=== PATIENT | male | born 1935 | race American Indian/Alaskan Native ===

== ENCOUNTER 2022-02-23 20:13 | Inpatient (IN) | payer MEDICARE ==
[2022-02-23] MEDS ORDERED: SODIUM CHLORIDE 0.9% 1000 ML 1,000 ML IV ONE (23:11)
--- NOTE | 2022-02-23 23:19 | Emergency Department Report ---
ED Seizure HPI - General Chief Complaint: Neuro Symptoms/Deficit Stated Complaint: NEURO SYMPTOMS Time Seen by Provider: 02/23/22 22:00 Source: patient, family Mode of arrival: Wheelchair Limitations: Other - History of Present Illness Initial Comments: 86 yo M with history of CVA x 3 brought in by son in law with what he described as generalized muscle shakiness/ seizure that he noticed around 19:30 PM tonight. He says patient and his was moved in with them about 3 months ago today is the first time he noticed this symptoms. 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 No other modifying or associated factors reported. MD Complaint: seizure - Related Data Allergies Allergy/AdvReac Type Severity Reaction Status Date / Time No Known Allergies Allergy Unverified 02/23/22 20:21 ED Review of Systems ROS: Stated complaint: NEURO SYMPTOMS Other details as noted in HPI Comment: All other systems reviewed and negative Neurological: other (seizure) ED Past Medical Hx - Past Medical History Previous Medical History?: Yes Hx CVA: Yes (x 3) Additional medical history: Pt is nonverbal. Gout - Surgical History Past Surgical History?: No - Social History Smoking Status: Never Smoker ED Physical Exam - General Limitations: Other General appearance: alert, in no apparent distress - Head Head exam: Present: atraumatic, normal inspection - Eye Eye exam: Present: normal appearance Pupils: Present: normal accommodation - ENT ENT exam: Present: normal exam, normal orophraynx, mucous membranes moist - Neck Neck exam: Present: normal inspection, full ROM. Absent: tenderness - Respiratory Respiratory exam: Present: normal lung sounds bilaterally. Absent: respiratory distress, accessory muscle use - Cardiovascular Cardiovascular Exam: Present: regular rate, normal rhythm, normal heart sounds - GI/Abdominal GI/Abdominal exam: Present: soft, normal bowel sounds. Absent: distended, tenderness - Extremities Exam Extremities exam: Present: normal inspection, full ROM, normal capillary refill. Absent: tenderness, pedal edema - Back Exam Back exam: Present: normal inspection. Absent: tenderness - Neurological Exam Neurological exam: Present: alert, oriented X3 - Psychiatric Psychiatric exam: Present: normal affect, normal mood - Skin Skin exam: Present: warm, dry ED Course Vital Signs 02/23/22 02/24/22 20:22 01:02 Temperature 99.1 F 97.6 F Pulse Rate 77 77 Respiratory 16 21 Rate Blood Pressure 134/69 117/71 [Right] O2 Sat by Pulse 98 Oximetry ED Medical Decision Making - Lab Data Result diagrams: 02/23/22 23:36 02/23/22 23:36 - EKG Data -: EKG Interpreted by Me - EKG Data 02/24/22 04:35 EKG noted with atrial fibrillation at a rate of 74 bpm with ventricular prematu re complexes in this abnormal ECG. - Medical Decision Making Here with possible seizure -- even though this is likely seizure but considering this patients age other differential such as stroke, myocardial infarction, hepatic encephalopathy, systemic infection with sepsis cannot be ruled out. In order to rule out those above we will go ahead and order CT scan of the brain, CBC, CMP, urinalysis, for any infectious process or electrolyte abnormality and thyroid panel for any hypo or hyper thyroidism. In the meantime we will go ahead and give immediate Keppra 1 g IV piggyback x1 for neuroleptic stabilization . Lab reviewed and noted to have potassium of 6.3 consistent with hyperkalemia--coupled with EKG showing atrial fibrillation that is likely new--this finding likely lead to patient seizure--given his Kayexalate--also insulin 10 units + D50 and amp of Calcium gluconate-- and considering this patient's age we will go ahead and admit to the hospitalist for further evaluation and treatment to have the opportunity to repeat the labs in the morning. CXR noted with FINDINGS: SUPPORT DEVICES: None. HEART / MEDIASTINUM: Borderline to mild cardiomegaly. Mild atherosclerotic calcification of the aortic knob. LUNGS / PLEURA: Bilateral interstitial opacities more prevalent in left lung base. Mild elevation left hemidiaphragm. BONES: No significant osseous abnormality. ADDITIONAL FINDINGS: No significant additional findings. IMPRESSION: 1. Left greater than right basilar interstitial opacities which may be accentuated by elevated left hemidiaphragm. Differential considerations could include atelectasis and infection. Critical care attestation.: If time is entered above; I have spent that time in minutes in the direct care of this critically ill patient, excluding procedure time. ED Disposition Clinical Impression: Seizure, Hyperkalemia Atrial fibrillation Qualifiers: Atrial fibrillation type: unspecified Qualified Code(s): I48.91 - Unspecified atrial fibrillation Disposition: 09 ADMITTED INPATIENT Is pt being admited?: No Does the pt Need Aspirin: No Condition: Stable
[2022-02-23 23:50] LABS: Basophils % (Auto) 0.3 % (0.0-1.8); Eosinophils % (Auto) 1.2 % (0.0-4.3); Hematocrit 31.1 % (35.5-45.6); Hemoglobin 10.3 gm/dl (11.8-15.2); Lymphocytes # (Auto) 0.8 K/mm3 (1.2-5.4); Lymphocytes % (Auto) 21.5 % (13.4-35.0); Mean Corpuscular HGB Conc 33 % (32-34); Mean Corpuscular Volume 94 fl (84-94); Monocytes # (Auto) 0.6 K/mm3 (0.0-0.8); Monocytes % (Auto) 15.4 % (0.0-7.3); Platelet Count 168 K/mm3 (140-440); Red Blood Count 3.31 M/mm3 (3.65-5.03); Red Cell Distribution Width 13.1 % (13.2-15.2)
--- NOTE | 2022-02-23 23:56 | XRay Report ---
CHEST 1 VIEW INDICATION / CLINICAL INFORMATION: seizure. COMPARISON: None available. FINDINGS: SUPPORT DEVICES: None. HEART / MEDIASTINUM: Borderline to mild cardiomegaly. Mild atherosclerotic calcification of the aorti c knob. LUNGS / PLEURA: Bilateral interstitial opacities more prevalent in left lung base. Mild elevation lef t hemidiaphragm. BONES: No significant osseous abnormality. ADDITIONAL FINDINGS: No significant additional findings. IMPRESSION: 1. Left greater than right basilar interstitial opacities which may be accentuated by elevated left h emidiaphragm. Differential considerations could include atelectasis and infection. Signer Name: Rush Bruno II, MD Signed: 02/23/2022 11:52 PM Workstation Name: [id number]
[2022-02-24 00:02] LABS: INR 1.29 (0.87-1.13)
[2022-02-24 00:03] LABS: Partial Thromboplastin Time 33.7 Sec. (24.2-36.6); Thrombin Time 16.4 Sec. (15.1-19.6)
[2022-02-24 00:08] LABS: Albumin 4.1 g/dL (3.9-5); Calcium 9.2 mg/dL (8.4-10.2)
[2022-02-24 00:09] LABS: Creatine Kinase MB 3.9 ng/mL (0.0-4.0)
[2022-02-24] MEDS ORDERED: LORazepam 2 MG/ML VIAL IV ONE (00:21)
[2022-02-24] MEDS ORDERED: levETIRAcetam 1000 MG/NS 0.75% 1,000 MG/100 ML BAG IV ONE (00:21)
[2022-02-24 00:54] LABS: Mucus,Urine FEW /HPF; WBC,Urine < 1.0 /HPF (0.0-6.0)
[2022-02-24 00:59] LABS: Color,Urine Yellow (Yellow)
[2022-02-24 01:00] LABS: Bilirubin,Urine Negative (Negative); Blood,Urine Negative (Negative); RBC,Urine < 1.0 /HPF (0.0-6.0); Urobilinogen,Urine < 2.0 mg/dL (<2.0)
--- NOTE | 2022-02-24 03:39 | Cat Scan Report ---
CT HEAD WITHOUT CONTRAST INDICATION / CLINICAL INFORMATION: seizure. TECHNIQUE: CT head was performed without administration of intravenous contrast. All CT scans at this location are performed using CT dose reduction for ALARA by means of automated exposure control. COMPARISON: None available. FINDINGS: CEREBRAL HEMISPHERES: Remote infarctions left MCA distribution. Extensive generalized atrophy and vincent rovascular ischemic disease. Additional occipital infarction on the left. No acute hemorrhage. CEREBELLUM / BRAINSTEM: No significant abnormality. ORBITS: No significant abnormality. SOFT TISSUES: No significant abnormality. SKULL: No significant abnormality. PARANASAL SINUSES / MASTOID AIR CELLS: Normal as visualized. ADDITIONAL FINDINGS: None. IMPRESSION: 1. Remote infarctions as detailed. No acute intracranial pathology. 2. Advanced atrophic changes and microvascular ischemic disease. Signer Name: Rush Bruno II, MD Signed: 02/24/2022 3:35 AM Workstation Name: [id number]
[2022-02-24] MEDS ORDERED: SODIUM POLYSTYRENE 15 GM/60 ML ORAL LIQD PO ONE (04:31)
[2022-02-24] MEDS ORDERED: DEXTROSE 50% IN WATER (25GM) 50 ML SYRINGE IV ONE (04:43)
[2022-02-24] MEDS ORDERED: INSULIN REGULAR, HUMAN 100 UNITS/1 ML IV ONE (04:43)
[2022-02-24] MEDS ORDERED: CALCIUM GLUCONATE 1,000 MG in SODIUM CHLORIDE 0.9% 100 ML IV ONE (04:44)
[2022-02-24] MEDS ORDERED: MORPHINE 2 MG/1 ML INJ IV PRN ×2 (04:50→04:53)
[2022-02-24] MEDS ORDERED: ONDANSETRON 4 MG/2 ML INJ IV PRN ×2 (04:50→04:53)
[2022-02-24] MEDS ORDERED: ACETAMINOPHEN 325 MG TAB PO PRN ×2 (04:50→04:53)
[2022-02-24] MEDS ORDERED: MAGNESIUM HYDROXIDE (MOM) ORAL LIQD UDC PO PRN (04:53)
[2022-02-24] MEDS ORDERED: MORPHINE 4 MG/1 ML INJ IV PRN (04:53)
--- NOTE | 2022-02-24 05:02 | History and Physical Report ---
History of Present Illness Date of examination: 02/24/22 Date of admission: 02/24/2022 Chief complaint: Seizures History of present illness: 86-year-old -[place] male with significant history of hypertension, CVA x3, hyperlipidemia accompanied to the emergency room today by his son-in-law with a complaint of seizure disorder. Patient has no known history of seizure disorder. Was said to have had tonic-clonic seizures which was replaced at about 1930 p.m. yesterday. There was no urinary or fecal incontinence. No head injury, no biting of tongue. Patient had moved to with this daughter and son-in-law about 3 months ago. History was given by son-in-law who was by the bedside as patient is unable to communicate due to residual of previous CVAs. Work-up in the emergency room today, lab was significant for for hyperkalemia of 6.3. Troponin 0.094. BUN of 66 and creatinine of 4.5. Chest x-ray shows left greater than right basilar interstitial opacity which may be accentuated by elevated left hemidiaphragm differential considerations would include atelectasis and infection. CT scan of the head showed advanced atrophic changes and microvascular ischemic disease. No acute intracranial pathology. EKG shows atrial fib. Patient was given Kayexalate, insulin and glucose for his hyperkalemia in the emergency room. Past History Past Medical History: hypertension, hyperlipidemia, stroke (X3) Past Surgical History: No surgical history Social history: lives with family (Lives with Dauhter and .) Medications and Allergies Allergies Allergy/AdvReac Type Severity Reaction Status Date / Time No Known Allergies Allergy Unverified 02/23/22 20:21 Active Meds: Active Medications Acetaminophen (Acetaminophen 325 Mg Tab) 650 mg PO Q4H PRN PRN Reason: Pain MILD(1-3)/Fever >100.5/GALARZA Acetaminophen (Acetaminophen 325 Mg Tab) 650 mg PO Q4H PRN PRN Reason: Pain MILD(1-3)/Fever >100.5/GALARZA Heparin Sodium (Porcine) (Heparin 5,000 Unit/1 Ml Vial) 5,000 unit SUB-Q Q8HR YARA Calcium Gluconate 1,000 mg/ (Sodium Chloride) 110 mls @ 660 mls/hr IV ONCE ONE Stop: 02/24/22 04:53 Magnesium Hydroxide (Magnesium Hydroxide (Mom) Oral Liqd Udc) 30 ml PO Q4H PRN PRN Reason: Constipation Morphine Sulfate (Morphine 2 Mg/1 Ml Inj) 2 mg IV Q4H PRN PRN Reason: Pain, Moderate (4-6) Morphine Sulfate (Morphine 2 Mg/1 Ml Inj) 2 mg IV Q4H PRN PRN Reason: Pain, Moderate (4-6) Morphine Sulfate (Morphine 4 Mg/1 Ml Inj) 4 mg IV Q4H PRN PRN Reason: Pain , Severe (7-10) Ondansetron HCl (Ondansetron 4 Mg/2 Ml Inj) 4 mg IV Q8H PRN PRN Reason: Nausea And Vomiting Ondansetron HCl (Ondansetron 4 Mg/2 Ml Inj) 4 mg IV Q8H PRN PRN Reason: Nausea And Vomiting Sodium Chloride (Sodium Chloride 0.9% 10 Ml Flush Syringe) 10 ml IV BID YARA Sodium Chloride (Sodium Chloride 0.9% 10 Ml Flush Syringe) 10 ml IV PRN PRN PRN Reason: LINE FLUSH Sodium Chloride (Sodium Chloride 0.9% 10 Ml Flush Syringe) 10 ml IV BID YARA Sodium Chloride (Sodium Chloride 0.9% 10 Ml Flush Syringe) 10 ml IV PRN PRN PRN Reason: LINE FLUSH Review of Systems ROS unobtainable: due to mental status Exam - Constitutional Vitals: Temp Pulse Resp BP Pulse Ox 97.6 F 77 21 117/71 98 02/24/22 01:02 02/24/22 01:02 02/24/22 01:02 02/24/22 01:02 02/23/22 20:22 General appearance: Present: no acute distress, well-nourished, other (Dry oral mucosa) - EENT Eyes: Present: PERRL, EOM intact. Absent: scleral icterus ENT: hearing intact, clear oral mucosa, dentition normal - Neck Neck: Present: supple, normal ROM - Respiratory Respiratory effort: normal Respiratory: bilateral: CTA - Cardiovascular Rhythm: irregularly irregular Heart Sounds: Present: S1 & S2. Absent: gallop, systolic murmur, diastolic murmur, rub, click - Extremities Extremities: no ischemia, pulses intact, pulses symmetrical, normal temperature, normal color, Full ROM Extremity abnormal: edema (Trace edema over the dorsum of both feet) Peripheral Pulses: within normal limits - Abdominal General gastrointestinal: Present: soft, non-tender, non-distended, normal bowel sounds. Absent: mass - Integumentary Integumentary: Present: clear, warm, dry, normal turgor. Absent: rash - Musculoskeletal Musculoskeletal: strength equal bilaterally - Psychiatric Psychiatric: appropriate mood/affect, cooperative - Neurologic Neurologic: CNII-XII intact, no focal deficits, moves all extremities, other (Speech is incoherent) HEART Score - HEART Score Troponin: Troponin T 0.094 ng/mL (0.00-0.029) H 02/23/22 23:36 Results - Labs CBC & Chem 7: 02/23/22 23:36 02/23/22 23:36 Labs: Abnormal lab results 02/23/22 02/23/22 02/23/22 Range/Units 23:36 23:36 23:36 WBC 3.8 L (4.5-11.0) K/mm3 RBC 3.31 L (3.65-5.03) M/mm3 Hgb 10.3 L (11.8-15.2) gm/dl Hct 31.1 L (35.5-45.6) % RDW 13.1 L (13.2-15.2) % Alfalfa % (Auto) 15.4 H (0.0-7.3) % Lymph # (Auto) 0.8 L (1.2-5.4) K/mm3 PT 17.6 H (12.2-14.9) Sec. INR 1.29 H (0.87-1.13) Potassium (3.6-5.0) mmol/L Carbon Dioxide (22-30) mmol/L BUN (9-20) mg/dL Creatinine (0.8-1.3) mg/dL Troponin T 0.094 H (0.00-0.029) ng/mL 02/23/22 Range/Units 23:36 WBC (4.5-11.0) K/mm3 RBC (3.65-5.03) M/mm3 Hgb (11.8-15.2) gm/dl Hct (35.5-45.6) % RDW (13.2-15.2) % Alfalfa % (Auto) (0.0-7.3) % Lymph # (Auto) (1.2-5.4) K/mm3 PT (12.2-14.9) Sec. INR (0.87-1.13) Potassium 6.3 H* (3.6-5.0) mmol/L Carbon Dioxide 19 L (22-30) mmol/L BUN 66 H (9-20) mg/dL Creatinine 4.5 H (0.8-1.3) mg/dL Troponin T (0.00-0.029) ng/mL Assessment and Plan Assessment: 1. Seizure disorder 2. Hyperkalemia 3. Atrial fibrillation 4. Hypertension 5. Hyperlipidemia 6. History of CVA x3 7. AKIBaseline BUN and creatinine unknown. 8. Elevated troponin Plan: 1. Patient admitted and placed on seizure precautions. We will also place patient on antiseizure medication. 2. Consult be placed to neurology for evaluation. 3. Patient has had insulin, glucose and Kayexalate in the emergency room. We will monitor potassium level. 4. We will schedule patient for EEG. 5. We will resume routine home medications once reconciled. 6. We will place consult to cardiology for evaluation and further recommendations on A. fib. And elevated troponin. Meanwhile we will schedule for echocardiogram. 7. We will schedule for renal ultrasound. Consult also placed to nephrology for evaluation and further recommendation. DVT prophylaxis: Subcutaneous heparin CODE STATUS: Full code
[2022-02-24] MEDS ORDERED: CALC GLUCONATE 1GM/NS 100 ML 1 GM/100 ML BAG IV ONE (05:20)
[2022-02-24] MEDS ORDERED: SODIUM CHLORIDE 0.9% 1000 ML 1,000 ML IV SCH (05:30)
[2022-02-24] MEDS: HEPARIN 5,000 UNIT/1 ML VIAL SUB-Q SCH ×3 (08:22→23:24)
[2022-02-24] MEDS ORDERED: SODIUM POLYSTYRENE 15 GM/60 ML ORAL LIQD PO SCH (09:00)
--- NOTE | 2022-02-24 10:06 | Consultation ---
History of Present Illness - Reason for Consult Consult date: 02/24/22 acute renal failure, hyperkalemia Requesting physician: RAMONA PATEL - History of Present Illness 86 yo M with history of CVA x 3 brought in by son in law with what he described as generalized muscle shakiness/ seizure that he noticed around 19:30 PM tonight. He says patient and his was moved in with them about 3 months ago today is the first time he noticed this symptoms. 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 No other modifying or associated factors reported. Patient is somewhat confused at this time. Unable to obtain any additional history from him. Tried to call patient's son Lv He at [phone]. No answer. Unable to leave message as mailbox is full. Past History Past Medical History: hypertension, hyperlipidemia, stroke (X3) Past Surgical History: No surgical history Social history: lives with family (Lives with Dauhter and .) Medications and Allergies Allergies Allergy/AdvReac Type Severity Reaction Status Date / Time No Known Allergies Allergy Unverified 02/23/22 20:21 Active Meds: Active Medications Acetaminophen (Acetaminophen 325 Mg Tab) 650 mg PO Q4H PRN PRN Reason: Pain MILD(1-3)/Fever >100.5/GALARZA Heparin Sodium (Porcine) (Heparin 5,000 Unit/1 Ml Vial) 5,000 unit SUB-Q Q8HR YARA Last Admin: 02/24/22 08:22 Dose: Not Given Magnesium Hydroxide (Magnesium Hydroxide (Mom) Oral Liqd Udc) 30 ml PO Q4H PRN PRN Reason: Constipation Morphine Sulfate (Morphine 2 Mg/1 Ml Inj) 2 mg IV Q4H PRN PRN Reason: Pain, Moderate (4-6) Morphine Sulfate (Morphine 4 Mg/1 Ml Inj) 4 mg IV Q4H PRN PRN Reason: Pain , Severe (7-10) Ondansetron HCl (Ondansetron 4 Mg/2 Ml Inj) 4 mg IV Q8H PRN PRN Reason: Nausea And Vomiting Sodium Chloride (Sodium Chloride 0.9% 10 Ml Flush Syringe) 10 ml IV PRN PRN PRN Reason: LINE FLUSH Sodium Chloride (Sodium Chloride 0.9% 10 Ml Flush Syringe) 10 ml IV BID [facility] Sodium Polystyrene Sulfonate (Sodium Polystyrene 15 Gm/60 Ml Oral Liqd) 60 gm PO ONCE@0900 YARA Stop: 02/24/22 13:00 Review of Systems ROS unobtainable: due to mental status Exam - Vital Signs Vital signs: Vital Signs Temp Pulse Resp BP Pulse Ox 99.1 F 77 16 134/69 98 02/23/22 20:22 02/23/22 20:22 02/23/22 20:22 02/23/22 20:22 02/23/22 20:22 - General Appearance General appearance: well-developed, well-nourished, appears stated age EENT: PERRL, mucous membranes moist Neck: Present: neck supple, trachea midline. Absent: JVD/HJR, Masses Respiratory: Clear to Ascultation Heart: regular, normal heart rate, S1S2, no murmurs Gastrointestinal: Present: normal. Absent: tenderness, distended, masses, guarding Integumentary: no rash, other (No edema) Results - Lab Results 02/23/22 23:36 02/23/22 23:36 Most recent lab results Calcium 9.2 mg/dL (8.4-10.2) 02/23/22 23:36 Assessment and Plan Impression * Acute kidney injury. Patient has a serum creatinine of 4.5 with a EGFR of 12 cc/min. Baseline renal function is not known * Altered mental status * Seizures * Hyperkalemia * History of CVA * History of hypertension Recommendations * Etiology of acute kidney injury unclear. He may have a prerenal component. Need to rule out obstructive component as well * Patient may have some degree of chronic kidney disease. Baseline renal functi on however is not known * Shall check a UA as well as a fractional excretion of sodium * Check renal ultrasound to assess kidney size and echogenicity and to rule out obstruction * Shall hydrate patient gently * Shall treat his hyperkalemia medically * Shall also do a bladder scan to rule out urinary retention. Discussed with patient's nurse * Avoid nephrotoxins * Monitor fluid status and electrolytes closely * Attempted to call his son Lv He at [phone]. No answer. Unable to leave message as mailbox is full. Shall try again later * Thank you very much for the consultation. Shall follow along with you
--- NOTE | 2022-02-24 10:06 | Electrocardiograph Report ---
[facility] Test Date: 2022-02-24 Test Time: 00:54:33 Pat Name: JAZLYN TATE Department: Room: A470 1 Gender: M Netezza Developer: NAV : [id number] Requested By: VELMA PEÑA Order Number: [id number] Reading MD: Paulo Wilson Measurements Intervals [place] Rate: 74 P: SD: QRS: -32 QRSD: 94 T: -28 QT: 394 QTc: 438 Interpretive Statements Atrial fibrillation Ventricular premature complex Nonspecific intraventricular conduction delay No previous ECG available for comparison Would repeat given sig artifact Electronically Signed On 02-24-2022 10:05:55 EDT by Paulo Wilson
[2022-02-24 10:09] LABS: Calcium 9.7 mg/dL (8.4-10.2)
[2022-02-24] MEDS: SODIUM BICARBONATE 75 MEQ in DEXTROSE 5% IN WATER 1,000 ML IV SCH (11:58)
[2022-02-24 13:08] LABS: Hyaline Casts,Urine 3 /LPF; Mucus,Urine FEW /HPF
--- NOTE | 2022-02-24 13:48 | Discharge Summary ---
Providers - Providers Date of Admission: 02/24/22 04:50 Date of discharge: 02/24/22 Attending physician: RADHA FORRESTER MD 02/24/22 04:53 Consult to Physician [CONS] Routine Comment: Consulting Provider: SAGRAROI NAVARRO Physician Instructions: Reason For Exam: Seizures 02/24/22 04:56 Consult to Physician [CONS] Routine Comment: Consulting Provider: KHRIS NORRIS Physician Instructions: Reason For Exam: [place] Fibrillation 02/24/22 05:12 Consult to Physician [CONS] Routine Comment: Consulting Provider: MIR GARCIA Physician Instructions: Reason For Exam: GUILLERMO 02/24/22 11:44 Speech Therapy Evaluation and Treat [CONS] Urgent Reason For Exam: poor p.o intake; refusal to eat/drink 02/24/22 12:13 Consult to Dietitian/Nutrition [CONS] Routine Physician Instructions: Reason For Exam: Reason for Consult: Write/Manage Tube Feeding Primary care physician: ABILIO LARA Hospitalization Reason for admission: Hyperkalemia, seizure disorder Condition: Stable Pertinent studies: Reviewed. Procedures: None. Hospital course: The patient is an 86-year-old -[place] male with significant history of hypertension, CVA x3, hyperlipidemia accompanied to the emergency room today by his son-in-law with a complaint of seizure disorder. Patient has no known history of seizure disorder. Was said to have had tonic-clonic seizures which was replaced at about 1930 p.m. yesterday. There was no urinary or fecal incontinence. No head injury, no biting of tongue. Patient is currently in hospice and with his daughter and son-in-law approximately 3 months ago. The history was given by the son-in-law at the bedside as the patient is unable to communicate due to residual effects of previous strokes. On evaluation, the patient had labs significant for hyperkalemia of 6.3, creatinine 4.5, and troponin 0.094. The patient received medical management for hyperkalemia with Kayexalate, IV insulin, and D50 in the emergency department. The patient's hyperkalemia has since resolved. Nephrology was consulted for management. Further investigation revealed that the patient was currently under hospice at [facility] who are willing to accept the patient back to their inpatient hospice unit in [place] pending a COVID test. The patient is medically cleared for discharge back to [facility]. Disposition: 51 HOSPICE/MEDICAL FACILITY Final Discharge Diagnosis (Prints w/discharge instructions): Seizure disorder, hyperkalemia, atrial fibrillation, hypertension, hyperlipidemia, GUILLERMO, elevated troponin, history of CVA x3 Time spent for discharge: 45 min Core Measure Documentation - Palliative Care Palliative Care/ Comfort Measures: Hospice Care - Core Measures Any of the following diagnoses?: history only Exam - Constitutional Vitals: Temp Pulse Resp BP Pulse Ox 97.3 F L 67 16 123/66 96 02/24/22 13:19 02/24/22 13:19 02/24/22 13:19 02/24/22 13:19 02/24/22 13:19 General appearance: Present: no acute distress, cachectic - EENT Eyes: Present: PERRL, EOM intact ENT: hearing intact, clear oral mucosa - Neck Neck: Present: supple, normal ROM - Respiratory Respiratory effort: normal Respiratory: bilateral: CTA - Cardiovascular Rhythm: regular Heart Sounds: Present: S1 & S2 - Extremities Extremities: no ischemia, pulses intact, pulses symmetrical, No edema, normal temperature, normal color Peripheral Pulses: within normal limits - Abdominal General gastrointestinal: Present: soft, non-tender, non-distended, normal bowel sounds Male genitourinary: Present: deferred - Rectal Rectal Exam: deferred - Integumentary Integumentary: Present: clear, warm, dry - Musculoskeletal Musculoskeletal: generalized weakness - Psychiatric Psychiatric: other (Unable to fully examine given patient's cognitive decline after strokes) - Neurologic Neurologic: other (Unable to fully examine given patient's cognitive decline after strokes) - Allied Health Allied health notes reviewed: nursing Plan Activity: no restrictions Diet: low salt Additional Instructions: The patient is an 86-year-old -[place] male with significant history of hypertension, CVA x3, hyperlipidemia accompanied to the emergency room today by his son-in-law with a complaint of seizure disorder. Patient has no known history of seizure disorder. Was said to have had tonic- clonic seizures which was replaced at about 1930 p.m. yesterday. There was no urinary or fecal incontinence. No head injury, no biting of tongue. Patient is currently in hospice and with his daughter and son-in-law approximately 3 months ago. The history was given by the son-in-law at the bedside as the patient is unable to communicate due to residual effects of previous strokes. On evaluation, the patient had labs significant for hyperkalemia of 6.3, creatinine 4.5, and troponin 0.094. The patient received medical management for hyperkalemia with Kayexalate, IV insulin, and D50 in the emergency department. The patient's hyperkalemia has since resolved. Nephrology was consulted for management. Further investigation revealed that the patient was currently under hospice at [facility] who are willing to accept the patient back to their inpatient hospice unit in [place] pending a COVID test. The patient is medically cleared for discharge back to [facility]. Care Plan Goals: Patient's medically cleared to discharge to inpatient hospice facility at [facility]. Assessment: The patient is an 86-year-old -[place] male with significant history of hypertension, CVA x3, hyperlipidemia accompanied to the emergency room today by his son-in-law with a complaint of seizure disorder. Patient has no known history of seizure disorder. Was said to have had tonic-clonic seizures which was replaced at about 1930 p.m. yesterday. There was no urinary or fecal incontinence. No head injury, no biting of tongue. Patient is currently in hospice and with his daughter and son-in-law approximately 3 months ago. The history was given by the son-in-law at the bedside as the patient is unable to communicate due to residual effects of previous strokes. On evaluation, the patient had labs significant for hyperkalemia of 6.3, creatinine 4.5, and troponin 0.094. The patient received medical management for hyperkalemia with Kayexalate, IV insulin, and D50 in the emergency department. The patient's hyperkalemia has since resolved. Nephrology was consulted for management. Further investigation revealed that the patient was currently under hospice at [facility] who are willing to accept the patient back to their inpatient hospice unit in [place] pending a COVID test. The patient is medically cleared for discharge back to [facility]. Follow up with: ABILIO LARA MD [Primary Care Provider] - 3-5 Days
[2022-02-24 14:19] LABS: Color,Urine Straw (Yellow)
[2022-02-24 14:20] LABS: Bilirubin,Urine Negative (Negative)
[2022-02-24 14:21] LABS: Blood,Urine Large (Negative); Urobilinogen,Urine < 2.0 mg/dL (<2.0)
--- NOTE | 2022-02-24 14:31 | Consultation ---
History of Present Illness Consult date: 02/24/22 Consult reason: atrial fibrillation History of present illness: We are asked to consult on this 86-year-old man who is elderly, frail and poorly communicative. He apparently was admitted with altered mental status and nonspecific neurological symptoms suggesting possible seizures. In the hospital, EKG and telemetry monitoring reveals atrial fibrillation with well- controlled ventricular rate. Patient is unable to provide history, and records do not indicate chronicity of the atrial fibrillation. The patient is does not appear to be on AV mauricio blocking agents or oral anticoagulation. Past History Past Medical History: hypertension, hyperlipidemia, stroke (X3) Past Surgical History: No surgical history Social history: lives with family (Lives with Dauhter and .) Medications and Allergies Allergies Allergy/AdvReac Type Severity Reaction Status Date / Time No Known Allergies Allergy Unverified 02/23/22 20:21 Home Medications Medication Instructions Recorded Confirmed Last Taken Type Sodium Bicarbonate 75 meq IV DIRECT vial 02/24/22 Unknown Rx Active Meds: Active Medications Acetaminophen (Acetaminophen 325 Mg Tab) 650 mg PO Q4H PRN PRN Reason: Pain MILD(1-3)/Fever >100.5/GALARZA Heparin Sodium (Porcine) (Heparin 5,000 Unit/1 Ml Vial) 5,000 unit SUB-Q Q8HR [facility] Last Admin: 02/24/22 08:22 Dose: Not Given Sodium Bicarbonate 75 meq/ (Dextrose) 1,075 mls @ 75 mls/hr IV DIRECT YARA Last Admin: 02/24/22 11:58 Dose: 75 mls/hr Magnesium Hydroxide (Magnesium Hydroxide (Mom) Oral Liqd Udc) 30 ml PO Q4H PRN PRN Reason: Constipation Morphine Sulfate (Morphine 2 Mg/1 Ml Inj) 2 mg IV Q4H PRN PRN Reason: Pain, Moderate (4-6) Morphine Sulfate (Morphine 4 Mg/1 Ml Inj) 4 mg IV Q4H PRN PRN Reason: Pain , Severe (7-10) Ondansetron HCl (Ondansetron 4 Mg/2 Ml Inj) 4 mg IV Q8H PRN PRN Reason: Nausea And Vomiting Sodium Chloride (Sodium Chloride 0.9% 10 Ml Flush Syringe) 10 ml IV PRN PRN PRN Reason: LINE FLUSH Sodium Chloride (Sodium Chloride 0.9% 10 Ml Flush Syringe) 10 ml IV BID YARA Last Admin: 02/24/22 12:05 Dose: 10 ml Review of Systems ROS unobtainable: due to mental status Physical Examination Vital Signs Temp Pulse Resp BP Pulse Ox 99.1 F 77 16 134/69 98 02/23/22 20:22 02/23/22 20:22 02/23/22 20:22 02/23/22 20:22 02/23/22 20:22 General appearance: other (Frail, elderly, poorly communicative, but no acute distress) HEENT: Positive: PERRL Neck: Positive: neck supple Cardiac: Positive: irregularly irregular Lungs: Positive: Decreased Breath Sounds Neuro: Positive: Weakness (Generalized lethargy) Abdomen: Positive: Soft Male genitourinary: Positive: deferred Skin: Positive: Clear Extremities: Absent: edema Results 02/23/22 23:36 02/24/22 09:17 Cardiac Enzymes 02/23/22 02/23/22 Range/Units 23:36 23:36 AST 25 (5-40) units/L CK-MB (CK-2) 3.9 (0.0-4.0) ng/mL Coagulation 02/23/22 Range/Units 23:36 PT 17.6 H (12.2-14.9) Sec. INR 1.29 H (0.87-1.13) APTT 33.7 (24.2-36.6) Sec. CBC 02/23/22 Range/Units 23:36 WBC 3.8 L (4.5-11.0) K/mm3 RBC 3.31 L (3.65-5.03) M/mm3 Hgb 10.3 L (11.8-15.2) gm/dl Hct 31.1 L (35.5-45.6) % Plt Count 168 (140-440) K/mm3 Lymph # (Auto) 0.8 L (1.2-5.4) K/mm3 [place] # (Auto) 0.6 (0.0-0.8) K/mm3 Eos # (Auto) 0.0 (0.0-0.4) K/mm3 Baso # (Auto) 0.0 (0.0-0.1) K/mm3 Comprehensive Metabolic Panel 02/23/22 02/24/22 Range/Units 23:36 09:17 Sodium 140 142 (137-145) mmol/L Potassium 6.3 H* 4.9 D (3.6-5.0) mmol/L Chloride 106.7 109.4 H (98-107) mmol/L Carbon Dioxide 19 L 21 L (22-30) mmol/L BUN 66 H 62 H (9-20) mg/dL Creatinine 4.5 H 4.4 H (0.8-1.3) mg/dL Glucose 90 60 L (75-100) mg/dL Calcium 9.2 9.7 (8.4-10.2) mg/dL AST 25 (5-40) units/L ALT 16 (7-56) units/L Alkaline Phosphatase 90 (35-129) units/L Total Protein 7.5 (6.3-8.2) g/dL Albumin 4.1 (3.9-5) g/dL EKG interpretations - Telemetry EKG Rhythm: Atrial Fibrillation Assessment and Plan - Patient Problems (1) Atrial fibrillation Current Visit: Yes Status: Acute Qualifiers: Atrial fibrillation type: unspecified Qualified Code(s): I48.91 - Unspecified atrial fibrillation Plan to address problem: Patient has atrial fibrillation of unspecified chronicity, no previous cardiac records available for review. Patient is rate controlled, so no AV mauricio blocking agents are indicated. If additional medical therapy is planned, oral anticoagulation with a NOAC can be considered for future stroke prophylaxis. An echocardiogram has been ordered, and will be reported when completed. Otherwise conservative cardiac management.
[2022-02-24 15:04] LABS: Creatinine,Urine 30.2 mg/dL (0.1-20.0); Fractional Sodium Excretion 9.8
[2022-02-25] MEDS: SODIUM BICARBONATE 75 MEQ in DEXTROSE 5% IN WATER 1,000 ML IV SCH (02:05)
[2022-02-25] MEDS: HEPARIN 5,000 UNIT/1 ML VIAL SUB-Q SCH ×3 (05:08→21:15)
--- NOTE | 2022-02-25 09:31 | Progress Note ---
Assessment and Plan Impression * Acute kidney injury. Patient has a serum creatinine of 4.5 with a EGFR of 12 cc/min. Baseline renal function is not known * Altered mental status * Seizures * Hyperkalemia * History of CVA * History of hypertension Recommendations * Etiology of acute kidney injury unclear. He may have a prerenal component. Need to rule out obstructive component as well * Patient may have some degree of chronic kidney disease. Baseline renal fu nction however is not known * His urine shows 1+ dipstick protein and large blood. Fractional excretion of sodium is 9.8%. * Check renal ultrasound to assess kidney size and echogenicity and to rule out obstruction * Continue gentle IV hydration. * Hyperkalemia has been corrected. * Bladder scan showed about 300 cc of urine in his bladder. Patient currently has a Walker catheter in place. He is currently nonoliguric. * No urgent indication for dialysis today * Avoid nephrotoxins * Monitor fluid status and electrolytes closely * Spoke with patient's son Lv He at [phone]. He has no knowledge of renal dysfunction. He was recently brought over from [place] to live with him here in [place]. He has been eating and drinking well prior to his episode of seizure. Also discussed with him regarding his renal status. He has no objection to initiating dialysis if needed Subjective Date of service: 02/25/22 Interval history: Patient is lethargic. IV fluid infusing. Breakfast at bedside. Has not been touched. Patient had a Walker catheter placed yesterday due to urinary retention. Objective - Vital Signs Vital signs: Vital Signs - 12hr 02/24/22 02/24/22 02/25/22 23:00 23:55 03:55 Temperature 97.9 F 98.2 F Pulse Rate 58 L 53 L 57 L Respiratory 18 18 Rate Blood Pressure 144/63 141/69 O2 Sat by Pulse 98 99 Oximetry 02/25/22 08:00 Temperature Pulse Rate Respiratory Rate Blood Pressure O2 Sat by Pulse 96 Oximetry - General Appearance General appearance: well-developed, well-nourished, appears stated age EENT: PERRL, mucous membranes moist Neck: no JVD, no thyromegaly, no carotid bruit, supple Respiratory: Present: Clear to Ascultation Cardiology: regular, normal heart rate, S1S2, no murmurs Gastrointestinal: normal, normoactive bowel sounds Integumentary: other (No edema) - Lab 02/23/22 23:36 02/24/22 09:17 Most recent lab results Calcium 9.7 mg/dL (8.4-10.2) 02/24/22 09:17 Urine Creatinine 30.2 mg/dL (0.1-20.0) H 02/24/22 12:02 Urine Sodium 99 mmol/L 02/24/22 12:02 Medications & Allergies - Medications Allergies/Adverse Reactions: Allergies No Known Allergies Allergy (Unverified 02/23/22 20:21) Home Medications: Home Medications Medication Instructions Recorded Confirmed Last Taken Type Sodium Bicarbonate 75 meq IV DIRECT vial 02/24/22 Unknown Rx Active Medications: Generic Name Dose Route Start Last Admin Trade Name Freq PRN Reason Stop Dose Admin Acetaminophen 650 mg 02/24/22 04:50 Acetaminophen 325 Mg Tab PO Q4H PRN Pain MILD(1-3)/Fever >100.5/GALARZA Heparin Sodium (Porcine) 5,000 unit 02/24/22 06:00 02/25/22 05:08 Heparin 5,000 Unit/1 Ml Vial SUB-Q 5,000 unit Q8HR YARA Administration Sodium Bicarbonate 75 meq/ 1,075 mls @ 75 mls/hr 02/24/22 11:00 02/25/22 02:05 Dextrose IV 75 mls/hr DIRECT YARA Administration Magnesium Hydroxide 30 ml 02/24/22 04:53 Magnesium Hydroxide (Mom) Oral Liqd Udc PO Q4H PRN Constipation Morphine Sulfate 2 mg 02/24/22 04:50 Morphine 2 Mg/1 Ml Inj IV Q4H PRN Pain, Moderate (4-6) Morphine Sulfate 4 mg 02/24/22 04:53 Morphine 4 Mg/1 Ml Inj IV Q4H PRN Pain , Severe (7-10) Ondansetron HCl 4 mg 02/24/22 04:50 Ondansetron 4 Mg/2 Ml Inj IV Q8H PRN Nausea And Vomiting Sodium Chloride 10 ml 02/24/22 04:50 Sodium Chloride 0.9% 10 Ml Flush Syringe IV PRN PRN LINE FLUSH Sodium Chloride 10 ml 02/24/22 10:00 02/24/22 23:24 Sodium Chloride 0.9% 10 Ml Flush Syringe IV 10 ml BID YARA Administration
--- NOTE | 2022-02-25 11:15 | Progress Note ---
Assessment and Plan - Patient Problems (1) Atrial fibrillation Current Visit: Yes Status: Acute Qualifiers: Atrial fibrillation type: unspecified Qualified Code(s): I48.91 - Unspecified atrial fibrillation Plan to address problem: Patient has atrial fibrillation of unspecified chronicity, no previous cardiac records available for review. Patient is rate controlled, so no AV mauricio blocking agents are indicated. Echocardiogram shows well-preserved left ventricular systolic ejection fraction 50 to 55%. If additional medical therapy is planned, oral anticoagulation with a NOAC at low dose can be considered for future stroke prophylaxis. Otherwise conservative cardiac management. Subjective Date of service: 02/25/22 Principal diagnosis: Possible seizures, atrial fibrillation Interval history: Patient is comfortable, no acute distress. On tooling manager, he has a persistent atrial fibrillation, with slow ventricular rate. There are no AV mauricio blocking agents on his medication profile. Objective Vital Signs Temp Pulse Resp BP BP Pulse Ox 02/25/22 08:00 96 02/25/22 03:55 98.2 F 57 L 18 141/69 99 02/24/22 23:55 97.9 F 53 L 18 144/63 98 02/24/22 23:00 58 L 02/24/22 20:00 96 02/24/22 19:36 97.2 F L 65 19 138/71 95 02/24/22 16:28 97.7 F 58 L 18 131/74 99 02/24/22 13:19 97.3 F L 67 16 123/66 96 02/24/22 12:58 57 L 98 02/24/22 11:20 64 - Physical Examination General: No Apparent Distress, Cachectic HEENT: Positive: PERRL Neck: Positive: neck supple Cardiac: Positive: irregularly irregular Lungs: Positive: Decreased Breath Sounds Neuro: Positive: Weakness (Generalized lethargy) Abdomen: Positive: Soft Skin: Positive: Clear Extremities: Absent: edema
--- NOTE | 2022-02-25 15:33 | Discharge Summary ---
Providers - Providers Date of Admission: 02/24/22 04:50 Date of discharge: 02/25/22 Attending physician: RADHA FORRESTER MD 02/24/22 04:53 Consult to Physician [CONS] Routine Comment: Consulting Provider: SAGRARIO NAVARRO Physician Instructions: Reason For Exam: Seizures 02/24/22 04:56 Consult to Physician [CONS] Routine Comment: Consulting Provider: KHRIS NORRIS Physician Instructions: Reason For Exam: [place] Fibrillation 02/24/22 05:12 Consult to Physician [CONS] Routine Comment: Consulting Provider: MIR GARCIA Physician Instructions: Reason For Exam: GUILLERMO 02/24/22 11:44 Speech Therapy Evaluation and Treat [CONS] Urgent Reason For Exam: poor p.o intake; refusal to eat/drink 02/24/22 12:13 Consult to Dietitian/Nutrition [CONS] Routine Physician Instructions: Reason For Exam: Reason for Consult: Write/Manage Tube Feeding Primary care physician: ABILIO LARA Hospitalization Reason for admission: Acute metabolic encephalopathy, GUILLERMO, seizure disorder Condition: Stable Pertinent studies: Reviewed. Procedures: None. Hospital course: The patient is an 86-year-old -[place] male with significant history of hypertension, CVA x3, hyperlipidemia accompanied to the emergency room today by his son-in-law with a complaint of seizure disorder. Patient has no known history of seizure disorder. Was said to have had tonic-clonic seizures which was replaced at about 1930 p.m. yesterday. There was no urinary or fecal incontinence. No head injury, no biting of tongue. The history was given by the son-in-law at the bedside as the patient is unable to communicate due to residual effects of previous strokes. On evaluation, the patient had labs significant for hyperkalemia of 6.3, creatinine 4.5, and troponin 0.094. The patient received medical management for hyperkalemia with Kayexalate, IV insulin, and D50 in the emergency department. The patient's hyperkalemia has since resolved. Nephrology was consulted for management. Patient has refused labs and further evaluation. It is deemed that the patient is likely back at his baseline. Patient is medically clear for discharge to his family. He will be discharging home with the Gaming catheter. Disposition: 01 HOME / SELF CARE / HOMELESS Final Discharge Diagnosis (Prints w/discharge instructions): Seizure disorder, hyperkalemia, atrial fibrillation, hypertension, hyperlipidemia, GUILLERMO, elevated troponin, history of CVA x3, urinary retention Time spent for discharge: 45 min Core Measure Documentation - Palliative Care Palliative Care/ Comfort Measures: Hospice Care Exam - Constitutional Vitals: Temp Pulse Resp BP Pulse Ox 98.2 F 57 L 18 141/69 96 02/25/22 03:55 02/25/22 03:55 02/25/22 03:55 02/25/22 03:55 02/25/22 08:00 General appearance: Present: no acute distress, obese, other (Baseline dementia) - EENT Eyes: Present: PERRL, EOM intact ENT: hearing intact, clear oral mucosa, dentition normal - Neck Neck: Present: supple, normal ROM - Respiratory Respiratory effort: normal Respiratory: bilateral: CTA - Cardiovascular Rhythm: regular Heart Sounds: Present: S1 & S2 - Extremities Extremities: no ischemia, pulses intact, pulses symmetrical, No edema, normal temperature, normal color Peripheral Pulses: within normal limits - Abdominal General gastrointestinal: Present: soft, non-tender, non-distended, normal bowel sounds Male genitourinary: Present: deferred (Gaming catheter) - Rectal Rectal Exam: deferred - Integumentary Integumentary: Present: clear, warm, dry - Musculoskeletal Musculoskeletal: generalized weakness - Psychiatric Psychiatric: agitated, other (Baseline dementia; refusing lab draws or physical interaction) - Neurologic Neurologic: CNII-XII intact, moves all extremities - Allied Health Allied health notes reviewed: nursing Plan Activity: advance as tolerated Diet: low salt Additional Instructions: The patient is an 86-year-old -[place] male with significant history of hypertension, CVA x3, hyperlipidemia accompanied to the emergency room today by his son-in-law with a complaint of seizure disorder. Patient has no known history of seizure disorder. Was said to have had tonic- clonic seizures which was replaced at about 1930 p.m. yesterday. There was no urinary or fecal incontinence. No head injury, no biting of tongue. The history was given by the son-in-law at the bedside as the patient is unable to communicate due to residual effects of previous strokes. On evaluation, the patient had labs significant for hyperkalemia of 6.3, creatinine 4.5, and troponin 0.094. The patient received medical management for hyperkalemia with Kayexalate, IV insulin, and D50 in the emergency department. The patient's hyperkalemia has since resolved. Nephrology was consulted for management. Patient has refused labs and further evaluation. It is deemed that the patient is likely back at his baseline. Patient is medically clear for discharge to his family. He will be discharging home with the Gaming catheter. Care Plan Goals: Patient's medically cleared to discharge home with family. Assessment: The patient is an 86-year-old -[place] male with significant history of hypertension, CVA x3, hyperlipidemia accompanied to the emergency room today by his son-in-law with a complaint of seizure disorder. Patient has no known history of seizure disorder. Was said to have had tonic-clonic seizures which was replaced at about 1930 p.m. yesterday. There was no urinary or fecal incontinence. No head injury, no biting of tongue. The history was given by the son-in-law at the bedside as the patient is unable to communicate due to residual effects of previous strokes. On evaluation, the patient had labs significant for hyperkalemia of 6.3, creatinine 4.5, and troponin 0.094. The patient received medical management for hyperkalemia with Kayexalate, IV insuli n, and D50 in the emergency department. The patient's hyperkalemia has since resolved. Nephrology was consulted for management. Patient has refused labs and further evaluation. It is deemed that the patient is likely back at his baseline. Patient is medically clear for discharge to his family. He will be discharging home with the Gaming catheter. Follow up with: ABILIO LARA MD [Primary Care Provider] - 3-5 Days HAI MARI MD [Staff Physician] - 14 Days (Urinary retention requiring gaming catheter placement. )
[2022-02-26 01:22] VITALS: BP 149/77
[2022-02-26] MEDS: HEPARIN 5,000 UNIT/1 ML VIAL SUB-Q SCH ×2 (06:39→13:13)
--- NOTE | 2022-02-26 09:04 | Progress Note ---
Assessment and Plan Impression * Acute kidney injury. Patient has a serum creatinine of 4.5 with a EGFR of 12 cc/min. Baseline renal function is not known * Altered mental status * Seizures * Hyperkalemia * History of CVA * History of hypertension Recommendations * Etiology of acute kidney injury unclear. He may have a prerenal component as well as obstruction as well * Remains non-oliguric, 2L urine output over past 24 hours with gaming * No labs for review today * Patient may have some degree of chronic kidney disease. Baseline renal function however is not known * His urine shows 1+ dipstick protein and large blood. Fractional excretion of sodium is 9.8%. * Check renal ultrasound to assess kidney size and echogenicity * Continue gentle IV hydration as toleratedd. * No urgent indication for dialysis * Avoid nephrotoxins * Monitor fluid status and electrolytes closely * Dr. Duncan previously spoke with patient's son Lv He at [phone]. He has no knowledge of renal dysfunction. He was recently brought over from [place] to live with him here in [place]. He has been eating and drinking well prior to his episode of seizure. Also discussed with him regarding his renal status. He has no objection to initiating dialysis if needed Subjective Date of service: 02/26/22 Principal diagnosis: Possible seizures, atrial fibrillation Interval history: No clinical changes, resting in bed. Gaming in place Objective - Exam Narrative Exam: General appearance: well-developed, well-nourished, appears stated age EENT: PERRL, mucous membranes moist Neck: no JVD, supple Respiratory: Present: Clear to Ascultation Cardiology: regular, normal heart rate, S1S2, no murmurs Gastrointestinal: normal, normoactive bowel sounds Integumentary: other (No edema) - Vital Signs Vital signs: Vital Signs - 12hr 02/25/22 02/25/22 21:54 23:41 Temperature 98.5 F Pulse Rate 54 L Respiratory 18 Rate Blood Pressure 149/77 O2 Sat by Pulse 98 99 Oximetry - Lab 02/23/22 23:36 02/24/22 09:17 Most recent lab results Calcium 9.7 mg/dL (8.4-10.2) 02/24/22 09:17 Urine Creatinine 30.2 mg/dL (0.1-20.0) H 02/24/22 12:02 Urine Sodium 99 mmol/L 02/24/22 12:02 Medications & Allergies - Medications Allergies/Adverse Reactions: Allergies No Known Allergies Allergy (Unverified 02/23/22 20:21) Home Medications: Home Medications Medication Instructions Recorded Confirmed Last Taken Type Sodium Bicarbonate 75 meq IV DIRECT vial 02/24/22 Unknown Rx Active Medications: Generic Name Dose Route Start Last Admin Trade Name Freq PRN Reason Stop Dose Admin Acetaminophen 650 mg 02/24/22 04:50 Acetaminophen 325 Mg Tab PO Q4H PRN Pain MILD(1-3)/Fever >100.5/GALARZA Heparin Sodium (Porcine) 5,000 unit 02/24/22 06:00 02/26/22 06:39 Heparin 5,000 Unit/1 Ml Vial SUB-Q Not Given Q8HR YARA Magnesium Hydroxide 30 ml 02/24/22 04:53 Magnesium Hydroxide (Mom) Oral Liqd Udc PO Q4H PRN Constipation Morphine Sulfate 2 mg 02/24/22 04:50 Morphine 2 Mg/1 Ml Inj IV Q4H PRN Pain, Moderate (4-6) Morphine Sulfate 4 mg 02/24/22 04:53 Morphine 4 Mg/1 Ml Inj IV Q4H PRN Pain , Severe (7-10) Ondansetron HCl 4 mg 02/24/22 04:50 Ondansetron 4 Mg/2 Ml Inj IV Q8H PRN Nausea And Vomiting Sodium Chloride 10 ml 02/24/22 04:50 Sodium Chloride 0.9% 10 Ml Flush Syringe IV PRN PRN LINE FLUSH Sodium Chloride 10 ml 02/24/22 10:00 02/25/22 21:15 Sodium Chloride 0.9% 10 Ml Flush Syringe IV Not Given BID YARA
[2022-02-26 11:39] LABS: Hematocrit 32.9 % (35.5-45.6); Hemoglobin 11.1 gm/dl (11.8-15.2); Mean Corpuscular HGB Conc 34 % (32-34); Mean Corpuscular Volume 94 fl (84-94); Platelet Count 174 K/mm3 (140-440); Red Blood Count 3.51 M/mm3 (3.65-5.03); Red Cell Distribution Width 13.1 % (13.2-15.2)
[2022-02-26 11:55] LABS: Calcium 9.1 mg/dL (8.4-10.2)
--- NOTE | 2022-02-26 13:30 | Progress Note ---
Assessment and Plan - Patient Problems (1) Atrial fibrillation Current Visit: Yes Status: Acute Qualifiers: Atrial fibrillation type: unspecified Qualified Code(s): I48.91 - Unspecified atrial fibrillation Plan to address problem: Patient has atrial fibrillation of unspecified chronicity, no previous cardiac records available for review. Patient is rate controlled, so no AV mauricio blocking agents are indicated. Echocardiogram shows well-preserved left ventricular systolic ejection fraction 50 to 55%. If additional medical therapy is planned, oral anticoagulation with a NOAC at low dose can be considered for future stroke prophylaxis. Otherwise conservative cardiac management. Subjective Date of service: 02/26/22 Principal diagnosis: Possible seizures, atrial fibrillation Interval history: Patient is comfortable, no acute distress. On vehicle monitor technician, he has a persistent atrial fibrillation, with slow ventricular rate. There are no AV mauricio blocking agents on his medication profile. Objective Vital Signs Temp Pulse Pulse Resp BP Pulse Ox 02/26/22 11:36 64 18 96 02/26/22 09:46 92 02/25/22 23:41 98.5 F 54 L 18 149/77 99 02/25/22 21:54 98 02/25/22 20:08 97.9 F 56 L 18 142/70 99 - Physical Examination General: No Apparent Distress, Cachectic HEENT: Positive: PERRL Neck: Positive: neck supple Cardiac: Positive: irregularly irregular Lungs: Positive: Decreased Breath Sounds Neuro: Positive: Weakness (Generalized lethargy) Abdomen: Positive: Soft Skin: Positive: Clear Extremities: Absent: edema - Labs and Meds CBC 02/26/22 Range/Units 10:40 WBC 3.7 L (4.5-11.0) K/mm3 RBC 3.51 L (3.65-5.03) M/mm3 Hgb 11.1 L (11.8-15.2) gm/dl Hct 32.9 L (35.5-45.6) % Plt Count 174 (140-440) K/mm3 Comprehensive Metabolic Panel 02/26/22 02/26/22 Range/Units 10:40 10:40 Sodium 140 140 (137-145) mmol/L Potassium 4.5 4.5 (3.6-5.0) mmol/L Chloride 105.5 105.0 (98-107) mmol/L Carbon Dioxide 24 24 (22-30) mmol/L BUN 56 H 55 H (9-20) mg/dL Creatinine 3.6 H 3.6 H (0.8-1.3) mg/dL Glucose 123 H 124 H (75-100) mg/dL Calcium 9.1 9.0 (8.4-10.2) mg/dL
--- NOTE | 2022-03-03 13:29 | Ultrasound Report ---
ULTRASOUND RENAL INDICATION / CLINICAL INFORMATION: GUILLERMO. COMPARISON: None available. FINDINGS: RIGHT KIDNEY: Length = 12.8 cm. - Echogenicity: Increased - Cortical Thickness: Normal. - Hydronephrosis: None. - Cyst or mass: Several cysts are identified. In the lower pole is a 1.7 x 2.2 x 1.9 cm cyst. In the upper pole there is a 4.2 x 4.3 x 1 cm cyst. Complex cyst in upper pole measures 2.8 x 2.5 x 2.7 cm - Stones: None seen. LEFT KIDNEY: Length = 12 cm. - Echogenicity: Normal. - Cortical Thickness: Normal. - Hydronephrosis: None. - Cyst or mass: Multiple cysts. The midpole 2.0 x 2.1 x 2.5 cm. In the lower pole 2.4 x 2.2 x 3.1 cm - Stones: None seen. URINARY BLADDER: No significant abnormality. FREE FLUID: None. ADDITIONAL FINDINGS: None. IMPRESSION: 1. Bilateral cysts. Complex cyst in upper pole of the right kidney. Follow-up recommended. 2. Bilateral kidneys are echogenic suggesting medical renal disease Signer Name: Tolu Cook MD Signed: 03/03/2022 1:24 PM Workstation Name: [id number]
== END 2022-02-26 16:58 | disposition home health service (06) | DRG 101 ==
LOC: ED 20:13 → 4A 02-24 04:50
PROVIDERS: ADMIT Internal Medicine Geriatric Medicine; ATTEND Student in an Organized Health Care Education/Training Program
DX: G40.909 Epilepsy, unspecified, not intractable, without status epilepticus (principal); N17.9 Acute kidney failure, unspecified; Z20.822 Contact with and (suspected) exposure to COVID-19; I48.91 Unspecified atrial fibrillation; E87.5 Hyperkalemia; M10.9 Gout, unspecified; I10 Essential (primary) hypertension; E78.5 Hyperlipidemia, unspecified; R77.8 Other specified abnormalities of plasma proteins; R33.9 Retention of urine, unspecified; Z86.73 Personal history of transient ischemic attack (TIA), and cerebral infarction without residual deficits
CPT/HCPCS: 36415; 70450; 71045; 76770; 80048; 80053; 81001; 82550; 82553; 82570; 84300; 84443; 84484; 85025; 85027; 85610; 85670; 85730; 86021; 86038; 86160; 86225; 89050; 93005; 93306; G0378; J3490; Q9967; C8929; J0610; J1644; J1815; J1953; J2060; J7030; J7070; U0003